=== PATIENT | female | born 1945 | race Caucasian/White ===

== ENCOUNTER 2021-06-21 10:25 | Day surgery (SDC) | payer MEDICARE, OTHER ==
[~2021-06-21] VITALS: Ht 162.6 cm; Wt 97.7 kg
[2021-06-21] MEDS ORDERED: DIPHENHYDRAMINE 50 MG/ML, 1ML ONE (11:09)
[2021-06-21] MEDS ORDERED: PLEASE ENTER HEIGHT AND WEIGHT MC SCH (11:12)
[2021-06-21] MEDS ORDERED: SODIUM CHLORIDE 0.9% 1,000 ML IV SCH (11:30)
[2021-06-21] MEDS ORDERED: DIPHENHYDRAMINE 50 MG/ML, 1ML IVPush ONE (11:30)
[2021-06-21 11:37] VITALS: BP 147/69
[2021-06-21] MEDS ORDERED: ESCI10TA97 PO (11:37)
[2021-06-21] MEDS ORDERED: OMEG1CAP23 PO (11:37)
[2021-06-21] MEDS ORDERED: [UNRECOGNIZED DRUG - CODE] TP (11:37)
[2021-06-21] MEDS ORDERED: OMEP20TA62 PO (11:37)
[2021-06-21] MEDS ORDERED: PHEN10TA36 PO (11:37)
[2021-06-21] MEDS ORDERED: ROSU10TA26 PO (11:37)
[2021-06-21] MEDS ORDERED: APIX5TAB PO (11:37)
[2021-06-21] MEDS ORDERED: UBID100C24 PO (11:37)
[2021-06-21] MEDS ORDERED: LORA-247 PO (11:37)
[2021-06-21] MEDS ORDERED: BIOT5CAP3 PO (11:37)
[2021-06-21] MEDS ORDERED: MULT-717 PO (11:37)
[2021-06-21] MEDS ORDERED: CALCIUM PO (11:37)
[2021-06-21] MEDS ORDERED: ARGENINE PO (11:37)
[2021-06-21] MEDS ORDERED: OXYB5TAB10 PO (11:37)
[2021-06-21] MEDS ORDERED: BETA15CR4 TP (11:37)
[2021-06-21] MEDS ORDERED: NEO/POLY/DEX TP (11:37)
[2021-06-21] MEDS ORDERED: LEVO100T PO (11:37)
[2021-06-21] MEDS ORDERED: SALM1CAP2 PO (11:37)
[2021-06-21] MEDS ORDERED: L.AC1CAP6 PO (11:37)
[2021-06-21] MEDS ORDERED: LOSA25TA25 PO (11:37)
[2021-06-21] MEDS ORDERED: DOCO100C PO (11:37)
[2021-06-21] MEDS ORDERED: GABA300C PO (11:37)
[2021-06-21] MEDS ORDERED: ALLER CLEAR PO (11:37)
[2021-06-21] MEDS ORDERED: IRON PO (11:37)
[2021-06-21] MEDS ORDERED: HYDR12.517 PO (11:37)
[2021-06-21] MEDS ORDERED: MIDAZOLAM 1 MG/ML, 2ML ONE (11:42)
[2021-06-21] MEDS ORDERED: LIDOCAINE-MPF 1%, 5ML ONE (11:42)
[2021-06-21] MEDS ORDERED: FENTANYL PF 100 MCG/2ML ONE (11:42)
[2021-06-21] MEDS ORDERED: BUME1TAB21 PO ×2 (13:05→13:06)
[2021-06-21] MEDS ORDERED: SPIR25TA PO ×2 (13:05→13:06)
== END 2021-06-21 14:19 | disposition home or self-care (01) ==
LOC: CACL 10:25
PROVIDERS: ATTEND Internal Medicine Cardiovascular Disease
DX: R06.02 Shortness of breath (principal); I27.20 Pulmonary hypertension, unspecified; I08.1 Rheumatic disorders of both mitral and tricuspid valves; I10 Essential (primary) hypertension; Z79.899 Other long term (current) drug therapy; Z86.718 Personal history of other venous thrombosis and embolism; Z86.711 Personal history of pulmonary embolism; Z88.2 Allergy status to sulfonamides; Z88.5 Allergy status to narcotic agent; Z88.8 Allergy status to other drugs, medicaments and biological substances
CPT/HCPCS: 82803; 93306; 93356; 93451; 99156; 99157; C1894; J1200; J2250; J3010